=== PATIENT | male | born 1965 | race Caucasian/White ===

== ENCOUNTER → 2017-04-06 | Outpatient (CLI) | payer BC ==
--- NOTE | 2017-04-06 12:30 | Diagnostic Imaging Report ---
PROCEDURE: MR imaging cervical spine without contrast. TECHNIQUE: Multiplanar, multisequence MR imaging of the cervical spine was performed without contrast. INDICATION: Right arm and hand numbness. FINDINGS: There is slight straightening of the cervical lordosis. The alignment of the posterior spinal line is satisfactory. The vertebral body heights are preserved. There is disc desiccation at multiple levels with mild/ moderate disc height loss at C5-C6. There is normal signal in the spinal cord. The foramen magnum and upper cervical canal are widely patent. C2-C3: No disc herniation, no spinal canal or foraminal stenosis. C3-C4: No disc herniation, no spinal canal or foraminal stenosis. C4-C5: There is no disc herniation. No spinal canal stenosis. There is uncovertebral and facet hypertrophy resulting in minimal foraminal stenosis bilaterally. C5-C6: There is spur disc complex asymmetric to the right side. This is associated with moderate spinal canal stenosis reducing the AP dimension of the canal to 8 mm with minimal compression along the right side of the spinal cord at this level. No cord signal abnormality. The foramina demonstrate bilateral stenosis severe on the right and moderate/ severe on the left. C6-C7: There is spur disc complex asymmetric to the right side with associated prominent right uncovertebral joint hypertrophy and spur formation. This is associated with mild/ moderate spinal canal stenosis reducing the AP dimension of the central canal to 8.6 mm with right paracentral aspect of the disc spur complex abutting the anterior margin of the spinal cord without definite compression. The foramina demonstrate severe stenosis on the right and no significant stenosis on the left. C7-T1: No disc herniation, no spinal canal or foraminal stenosis. IMPRESSION: Degenerative disc, uncovertebral and facet changes result in spinal canal stenosis and foraminal narrowing at C5-C6 and C6-C7 levels as described. At C5-C6 there is minimal compression of the right side of the cord without cord signal abnormality. Dictated by: Dictated on workstation # [id number]
== END ==
LOC: RAD 11:14
PROVIDERS: ATTEND Orthopaedic Surgery
DX: M48.02 Spinal stenosis, cervical region (principal); M50.122 Cervical disc disorder at C5-C6 level with radiculopathy
CPT/HCPCS: 72141

== ENCOUNTER → 2019-11-05 | Outpatient (CLI) | payer BC ==
[2019-11-05 10:41] LABS: BUN/CREATININE RATIO 16; CREATININE SERUM 1.04 MG/DL (0.60-1.30); GFR ESTIMATED > 60
== END ==
LOC: LAB 10:13
PROVIDERS: ATTEND Family Medicine
DX: Z01.89 Encounter for other specified special examinations (principal)
CPT/HCPCS: 36415; 82565; 84520

== ENCOUNTER → 2019-11-14 | Outpatient (CLI) | payer BC ==
[~2019-11-14] MED LIST: CATHETER FLUSH 10 ML SYR IV PRN; HOLD METFORMIN - RECEIVED CONTRAST 20 ML VIAL IV SCH; IOHEXOL 350 MG/ML 100 ML (OMNIPAQUE 350) VIAL IV ONE; NS 100 ML (IVPB) BAG IV ONE
[2019-11-14 08:19] LABS: BUN/CREATININE RATIO 21; CREATININE SERUM 1.15 MG/DL (0.60-1.30); GFR ESTIMATED > 60
--- NOTE | 2019-11-14 09:13 | Diagnostic Imaging Report ---
INDICATION: Uncontrolled hypertension. TECHNIQUE: Axial imaging through the abdomen was performed after the administration of intravenous contrast and utilizing the CT angiography protocol. Multiplanar, 3D and MIP reformations were also performed. FINDINGS: The lung bases are clear. Tiny low-density in the inferior right lobe of the liver is noted, too small to characterize. No other liver lesions are seen. Gallbladder is unremarkable. No biliary ductal dilatation is identified. The pancreas and spleen are unremarkable. No adrenal mass is detected. Kidneys are unremarkable. The visualized small and large bowel loops are normal in caliber. There are occasional diverticula present. There is no ascites. The abdominal aorta shows some atherosclerotic calcifications but is normal in caliber. There appears to be a short segment dissection within the left common iliac artery. The origins of the celiac and SMA are widely patent. There is a single renal artery on the right. There is a main renal artery on the left with accessory renal artery arising just below the main renal artery. Both renal arteries appear to be widely patent. No renal artery stenosis is detected. The inferior mesenteric artery is patent. Bony structures are nonacute. IMPRESSION: 1. No evidence of renal artery stenosis. 2. 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 3. No other significant abnormality is detected. Dictated by: Dictated on workstation # [id number]
== END ==
LOC: RAD 07:49
PROVIDERS: ATTEND Family Medicine
DX: I10 Essential (primary) hypertension (principal)
CPT/HCPCS: 36415; 74175; 82565; 84520

== ENCOUNTER → 2020-09-01 | Outpatient (CLI) | payer BC ==
--- NOTE | 2020-09-01 15:55 | Diagnostic Imaging Report ---
INDICATION: Iliac artery dissecting aneurysm Ankle-brachial indices. Blood pressures were recorded in the brachial arteries and in the posterior tibial and dorsalis pedis arteries of both ankles. Ankle brachial index on the right is 0.97 on the left is 1.1. IMPRESSION: Unremarkable ankle brachial indices. Dictated by: Dictated on workstation # [id number]
--- NOTE | 2020-09-01 16:44 | Diagnostic Imaging Report ---
PROCEDURE: US aorta Doppler. TECHNIQUE: Multiple real time grayscale images were obtained over the abdominal aorta in various projections. INDICATION: History of iliac aneurysm. FINDINGS: Mild aneurysmal dilatation of the mid segment of the left common iliac artery is 1.6 cm transverse dimension. The abdominal aorta, itself, is normal in caliber. The vessel showed normal distal tapering. No aortic aneurysm. 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 Patent and nonaneurysmal abdominal aorta. Dictated by: Dictated on workstation # [id number]
== END ==
LOC: RAD 10:06
DX: I77.72 Dissection of iliac artery (principal)
CPT/HCPCS: 93923; 93978